=== PATIENT | female | born 1960 | race Caucasian/White ===

== ENCOUNTER 2018-07-22 09:18 | Day surgery (SDC) | payer MEDICARE, BC ==
--- NOTE | 2018-07-22 06:56 | History and Physical - [place] ---
CHIEF COMPLAINT/HISTORY OF CHIEF COMPLAINT: This patient with a history of intractable lumbar radiculopathy has a spinal opioid infusion system in place which is infusing Morphine at 2.6 mg a day. Over the last number of refills and reprogramming's battery depletion was identified. She is here for pump battery change without parameter changes. PAST MEDICAL HISTORY: Hypothyroidism, degenerative arthritis, scoliosis, and radiculopathy. PAST SURGICAL HISTORY: Hysterectomy and pump implant. MEDICATIONS ON ADMISSION: List to be provided. ALLERGIES: None. FAMILY/PSYCHOSOCIAL HISTORY: Social history - Caffeine. Family history - Diabetes and hypertension. SYSTEMS REVIEW: The patient is appropriate in no acute distress. The remainder of the systems review is positive for glasses, diverticular disease, reflux, and degenerative arthritis. PHYSICAL EXAMINATION: From the chart height is 5'4", weight is 230. No vital signs. Examination shows tenderness lumbar spine. Range of motion does cause pain into the low back. The pump is identified in the posterior inferior gluteal margin. The incisional site is intact. The underlying pain pattern is low back , hip and leg. Findings consistent with rotoscoliosis noted. Sensory and motor field evaluation of the lower extremities shows pain across both legs across a L5-S1 pattern. NEUROLOGIC: Cranial nerves are intact. IMPRESSION: 1. INTRACTABLE LUMBAR RADICULOPATHY, ICD-10 CODE M54.16 AND M54.17. 2. IMPLANTED SPINAL OPIOID INFUSION SYSTEM, MORPHINE. PLAN: The patient is here on an outpatient basis for the pump battery change, we will make no parameter changes. We will refill the pump. The procedure will be considered outpatient, although an overnight stay will be evaluated. JOB NUMBER: [id number] MTDD
[~2018-07-22 09:18] MED LIST: ACETAMINOPHEN 1,000 MG/100 ML BTL IV ONE; CEFAZOLIN 2 Gram 2 GM/50 ML BAG IVPB ONE; FAMOTIDINE 20MG TABLET PO ONE; MECLIZINE 25 MG TABLET PO ONE; METOCLOPRAMIDE 10 MG TABLET PO ONE; MORPHINE SULFATE IV ONE; MORPHINE SULFATE/PF 0.05 MG in 0.9 % SODIUM CHLORIDE 10ML VIA 0.95 ML IV ONE; SODIUM CHLORIDE 0.9% IV ONE
[2018-07-22] MEDS ORDERED: LIDOCAINE 2% MDV (20MG/ML) 20ML VIAL IV ONE (09:19)
[2018-07-22] MEDS ORDERED: LIDOCAINE 1% W/EPI 1:200,000 MPF 30ML SQ ONE (09:19)
[2018-07-22] MEDS ORDERED: PROPOFOL 10 MG/ML VIAL IV ONE (09:19)
[2018-07-22] MEDS ORDERED: MIDAZOLAM HCL 2MG/2ML VIAL IV ONE (09:19)
[2018-07-22] MEDS ORDERED: FENTANYL PF 100MCG/2ML VIAL IV ONE (09:19)
[2018-07-22] MEDS ORDERED: BUPIVACAINE 0.5% W/EPI MPF 30 ML VIAL IVP ONE (09:19)
--- NOTE | 2018-07-22 18:09 | Operative Note ---
DATE OF SURGERY: 07/22/18 PREOPERATIVE DIAGNOSES: INTRACTABLE LUMBAR RADICULOPATHY, ICD-10 CODE = M54.16 AND M54.17. MODERATELY SEVERE THORACOLUMBAR ROTOSCOLIOSIS, ICD-10 CODE = M46.25. OPERATION: SURGEON: TREVOR SIMON D.O. ANESTHESIA: LOCAL SEDATION. ANESTHESIA PROVIDER: CRISSY HOOPER CRNA INDICATION: This patient presents with a history of severe rotoscoliosis, intractable radiculopathy, and a spinal opioid infusion system for pain control. Over the last number of refills and reprogrammings, battery depletion was identified. She is here for pump battery reservoir replacement. PROCEDURE: Intravenous line, vital sign monitoring, IV sedation by Anesthesia. Patient position prone. Sterile prep, sterile technique. At the pump pouch, the right posterior/superior gluteal margin identified, marked, infiltrated, and an incision made and subcutaneous dissection was conducted to the pump pouch. The pouch was opened, Dacron sleeve opened, and the pump exteriorized. A new pump 40 mL programmable pre-filled with Morphine was then placed onto the field. Once the catheter indwelling was from the indwelling pump, the catheter was then interfaced to the new pump placed onto the field. Antibiotic irrigation and Bovie for hemostasis in the pouch. The Dacron sleeve was trimmed. The pump was then placed back into the pouch, secured to the posterior fascia with nonabsorbable suture through the pump eyelet. With the pump into the pouch, imaging was used to check appropriate orientation and no catheter obstruction, the pouch was then closed using STRATAFIX suture 2-0 fascia and 3- 0 skin. Dermabond closure. She was transported to the Recovery Room stable. No side-effects from the procedure or the sedation. When awake and alert, she was then prepared for discharge. DISCHARGE INSTRUCTIONS: 1. Sites remain clean and dry. No showering or bathing in any way that would disrupt dressings. If it happens, contact the clinic. The Dermabond will allow showering but no sitting in water. The office will contact the patient in 24-48 hours to set up a time in 7-10 days to evaluate the incision. Until then, she is to keep her activities low and controlled. All other instructions provided, numbers to contact with problems given. Antibiotic Levaquin 500 mg once a day for 14 days has been provided through the hospital. cc: Dr. Cameron JOB NUMBER: [id number] MTDD
== END 2018-07-22 11:50 | disposition home or self-care (01) ==
LOC: SUR 09:18
PROVIDERS: ATTEND Pain Medicine Interventional Pain Medicine
DX: M54.16 Radiculopathy, lumbar region (principal); M54.17 Radiculopathy, lumbosacral region; M46.25 Osteomyelitis of vertebra, thoracolumbar region; Z86.718 Personal history of other venous thrombosis and embolism; Z79.01 Long term (current) use of anticoagulants
CPT/HCPCS: 62368